=== PATIENT | female | born 1970 | race Caucasian/White ===

== ENCOUNTER 2018-06-27 13:02 | Outpatient (REF) | payer MEDICAID, SELFPAY ==
[2018-06-27 22:43] LABS: ALT 38 U/L (12-78); AST 20 U/L (15-37); Albumin 3.5 g/dL (3.4-5.0); Alkaline Phosphatase 85 U/L (46-116); Anion Gap 10.8 mmol/L (3-11); BUN 12 mg/dL (7-18); Bilirubin, Total 0.3 mg/dL (0.2-1.0); CO2 25.2 mmol/L (21.0-32.0); CREATININE 0.77 mg/dL (0.55-1.02); Calcium 8.9 mg/dL (8.5-10.1); Chloride 106 mmol/L (98-107); Creatine Kinase 91 U/L (26-192); Glucose 100 mg/dL (70-100); Magnesium 2.1 mg/dL (1.8-2.4); Potassium 4.3 mmol/L (3.5-5.1); Sodium 142 mmol/L (136-145); Total Protein 7.6 g/dL (6.4-8.2)
== END 2018-06-27 13:22 ==
LOC: NCHCN 13:02
PROVIDERS: PCP Physician Assistant Medical; Visit Provider Physician Assistant Medical
DX: M79.604 Pain in right leg (principal); M79.605 Pain in left leg
CPT/HCPCS: 80053; 82550; 83735

== ENCOUNTER 2019-01-18 18:25 | Outpatient (REF) | payer MEDICAID, SELFPAY ==
[2019-01-18 20:35] LABS: Hemoglobin A1C 7.2 % (4.5-6.2)
[2019-01-18 20:38] LABS: ALT 40 U/L (12-78); AST 18 U/L (15-37); Albumin 3.8 g/dL (3.4-5.0); Alkaline Phosphatase 87 U/L (46-116); BUN 15 mg/dL (7-18); Bilirubin, Total 0.2 mg/dL (0.2-1.0); CREATININE 0.97 mg/dL (0.55-1.02); Calcium 9.1 mg/dL (8.5-10.1); Chloride 103 mmol/L (98-107); Cholesterol 149 mg/dL (50-200); Glucose 136 mg/dL (70-100); HDL Cholesterol 42 mg/dL (40-60); LDL CHOLESTEROL 81 mg/dL (<100); Sodium 141 mmol/L (136-145); Total Protein 7.6 g/dL (6.4-8.2); Triglyceride 170 mg/dL (30-150)
== END 2019-01-18 18:45 ==
LOC: NCHCN 18:25
PROVIDERS: PCP Physician Assistant Medical; Visit Provider Physician Assistant Medical
DX: E11.9 Type 2 diabetes mellitus without complications (principal); I10 Essential (primary) hypertension
CPT/HCPCS: 80053; 80061; 83721; 83036

== ENCOUNTER 2019-02-17 04:28 | Outpatient (CLI) | payer MEDICAID, SELFPAY ==
--- NOTE | 2019-03-20 09:46 | ZIOP_ITS ---
DATE OF DICTATION: March 19, 2019 INDICATION: Palpitations. PRESCRIBING CLINICIAN: Kori Villalba ENROLLMENT: 02/17/2019 until 03/02/2019 FINDINGS: 1. Baseline sinus rhythm, 55-129 bpm, average 79 bpm. 2. Rare PAC, less than 1%, no SVT, no AF. 3. Rare PVC, less than 1%, no VT. 4. No bradycardia or pauses. 5. Six triggered events, all sinus rhythm, 75-93 bpm, two times with PVC's. 6. No symptoms recorded.
== END 2019-02-17 04:48 ==
PROVIDERS: PCP Physician Assistant Medical; Visit Provider Physician Assistant Medical
DX: R00.2 Palpitations (principal); I49.3 Ventricular premature depolarization; I49.1 Atrial premature depolarization
CPT/HCPCS: 0296T

== ENCOUNTER 2019-04-03 08:07 | Outpatient (CLI) | payer MEDICAID, SELFPAY | END 2019-04-03 08:27 | PROVIDERS: PCP Physician Assistant Medical; Visit Provider Internal Medicine Interventional Cardiology | DX: I25.10 Atherosclerotic heart disease of native coronary artery without angina pectoris (principal); I10 Essential (primary) hypertension; E78.5 Hyperlipidemia, unspecified; F17.200 Nicotine dependence, unspecified, uncomplicated | CPT/HCPCS: 93005; 93010 ==

== ENCOUNTER 2019-10-25 18:49 | Outpatient (REF) | payer MEDICAID, SELFPAY ==
--- NOTE | 2019-10-25 16:15 | PAPFT_PTH ---
PATIENT: Natalie Ha [facility] U#:[id number] AGE/SX: 49/F ROOM: RE10/25/[address]: Tra Morejon : 1970 BED: DIS: 10/25/2019 SPEC #: [id number] RECD: 10/26/19 13:00 STATUS: ELENA CALERO #: [id number] GARRETT: 10/25/19 16:[address]: Tra Morejon DEPT: [facility] Cytology RECD BY: Meeta Clements Tissues: 1 - CX/ENDOCX FOR PAP SMEARS Procedures: PAP THIN PREP/UVM Screening HPV DNA PROBE Comments: [id number]
== END 2019-10-25 19:09 ==
LOC: NCHCN 18:49
PROVIDERS: PCP Physician Assistant Medical; Visit Provider Physician Assistant Medical
DX: Z12.4 Encounter for screening for malignant neoplasm of cervix (principal); Z11.51 Encounter for screening for human papillomavirus (HPV); Z00.00 Encounter for general adult medical examination without abnormal findings
CPT/HCPCS: 88142; 87480; 87510; 87624; 87660

== ENCOUNTER 2020-01-19 09:28 | Outpatient (REF) | payer MEDICAID, SELFPAY ==
[2020-01-19 19:04] LABS: ALT 48 U/L (14-59); AST 23 U/L (15-37); Albumin 3.8 g/dL (3.4-5.0); Alkaline Phosphatase 70 U/L (46-116); BUN 14 mg/dL (7-18); Bilirubin, Total 0.3 mg/dL (0.2-1.0); CREATININE 0.77 mg/dL (0.55-1.02); Calcium 8.9 mg/dL (8.5-10.1); Calculated LDL 186 mg/dL (<100); Chloride 104 mmol/L (98-107); Cholesterol 254 mg/dL (<200); Glucose 130 mg/dL (74-106); HDL Cholesterol 45 mg/dL (40-60); Potassium 4.4 mmol/L (3.5-5.1); Sodium 139 mmol/L (136-145); Total Protein 7.8 g/dL (6.4-8.2); Triglyceride 117 mg/dL (<150)
[2020-01-19 19:21] LABS: Hemoglobin A1C 6.7 % (3.8-5.6)
== END 2020-01-19 09:48 ==
LOC: NCHCN 09:28
PROVIDERS: PCP Physician Assistant Medical; Visit Provider Physician Assistant Medical
DX: Z13.1 Encounter for screening for diabetes mellitus (principal); Z13.220 Encounter for screening for lipoid disorders; Z13.228 Encounter for screening for other metabolic disorders; Z00.00 Encounter for general adult medical examination without abnormal findings
CPT/HCPCS: 80053; 80061; 83036

== ENCOUNTER 2020-07-08 14:00 | Outpatient (REF) | payer MEDICAID, SELFPAY ==
[2020-07-08 20:53] LABS: Abs Immature Grans 0.06 10^3/uL (0.0-0.06); Absolute Basophil Count 0.05 10^3/uL (0.0-0.2); Absolute Eosinophil Count 0.27 10^3/uL (0.0-0.7); Absolute Neutrophil Count 6.82 10^3/uL (1.2-6.7); Basophils % 0.5; Eosinophils % 2.5; HCT 41.7 % (36.0-46.0); HGB 13.8 g/dL (11.2-15.7); Immature Grans % 0.6; Lymphocytes % 25.9; MCH 32.5 pg (27.0-33.0); MCHC 33.1 % (32.0-36.0); MCV 98.3 fL (80-95); MPV 11.2 fL (8.0-11.0); Monocytes % 7.4; Neutrophils % 63.1; Nucleated RBC 0 %; Platelet Count 235 10^3/uL (130-400); RBC 4.24 10^6/uL (3.93-5.22); RDW 13.1 % (11.7-14.6); RDW-SD 46.8 fL; WBC 10.81 10^3/uL (4.4-10.8)
[2020-07-08 21:13] LABS: Iron 81 ug/dL (50-170); Total Iron Binding Capacity 329 ug/dL (250-450); Transferrin Sat 25 % (15-50)
[2020-07-08 21:35] LABS: ALT 42 U/L (14-59); AST 19 U/L (15-37); Albumin 3.9 g/dL (3.4-5.0); Alkaline Phosphatase 76 U/L (46-116); Anion Gap 10.7 mmol/L (3-11); BUN 14 mg/dL (7-18); Bilirubin, Total 0.3 mg/dL (0.2-1.0); CO2 25.3 mmol/L (21.0-32.0); CREATININE 0.84 mg/dL (0.55-1.02); Calcium 9.2 mg/dL (8.5-10.1); Calculated LDL 51 mg/dL (<100); Chloride 101 mmol/L (98-107); Cholesterol 137 mg/dL (<200); Ferritin 231 ng/mL (8-252); Glucose 280 mg/dL (74-106); HDL Cholesterol 39 mg/dL (40-60); Potassium 4.1 mmol/L (3.5-5.1); Sodium 137 mmol/L (136-145); Total Protein 7.6 g/dL (6.4-8.2); Triglyceride 236 mg/dL (<150)
[2020-07-09 00:15] LABS: Hemoglobin A1C 9.6 % (<5.7)
== END 2020-07-08 14:20 ==
LOC: NCHCN 14:00
PROVIDERS: PCP Physician Assistant Medical; Visit Provider Physician Assistant Medical
DX: E11.9 Type 2 diabetes mellitus without complications (principal); I25.10 Atherosclerotic heart disease of native coronary artery without angina pectoris; G25.81 Restless legs syndrome
CPT/HCPCS: 80053; 80061; 82728; 83036; 83540; 83550; 85025

== ENCOUNTER 2021-09-24 14:16 | Outpatient (REF) | payer MEDICAID, SELFPAY ==
[2021-09-24 21:25] LABS: ALT 37 U/L (14-59); AST 20 U/L (15-37); Albumin 3.9 g/dL (3.4-5.0); Alkaline Phosphatase 75 U/L (46-116); Anion Gap 9.6 mmol/L (3-11); BUN 12 mg/dL (7-18); Bilirubin, Total 0.3 mg/dL (0.2-1.0); CO2 27.4 mmol/L (21.0-32.0); CREATININE 0.9 mg/dL (0.55-1.02); Calcium 9.3 mg/dL (8.5-10.1); Calculated LDL 78 mg/dL (<100); Chloride 102 mmol/L (98-107); Cholesterol 155 mg/dL (<200); Glucose 249 mg/dL (74-106); HDL Cholesterol 48 mg/dL (40-60); Potassium 4.6 mmol/L (3.5-5.1); Sodium 139 mmol/L (136-145); Total Protein 7.9 g/dL (6.4-8.2); Triglyceride 145 mg/dL (<150)
[2021-09-24 21:26] LABS: Hemoglobin A1C 8.6 % (<5.7)
== END 2021-09-24 14:17 | disposition home or self-care (01) ==
LOC: NCHCN 14:16
PROVIDERS: PCP Physician Assistant Medical; Visit Provider Physician Assistant Medical
DX: E11.9 Type 2 diabetes mellitus without complications (principal); Z13.220 Encounter for screening for lipoid disorders; Z00.00 Encounter for general adult medical examination without abnormal findings
CPT/HCPCS: 80053; 80061; 83036

== ENCOUNTER → 2022-08-19 02:18 | Outpatient (CLI) | payer MEDICAID, SELFPAY ==
--- NOTE | 2022-08-19 | DI.MAMMO_ITS ---
Exam(s) MAMMO SCREENING EXAM: MAMMO SCREENING CLINICAL HISTORY: SCREENING, Z00.00,PREVENTIVE HEALTH, Z00.00 TECHNIQUE: Bilateral full field digital CC and MLO mammographic images were obtained with 3D tomosyn thesis and utilizing computer aided detection (CAD). COMPARISON: Available for comparison. FINDINGS: Masses/Architectural Distortion: None seen. Microcalcifications: No suspicious pleomorphic-type are seen. Skin Thickening/Nipple Retraction: None. IMPRESSION: 1. No significant interval change with no specific features of malignancy noted. 2. Unless there is more urgent need, screening mammography is recommended, as per [employer] guidelines. BI-RADS Category 1 - Negative Breast Density - Category B - Scattered areas of fibroglandular density Breast density category C or D implies that the patient has dense breast tissue. Dense breast tissue is very common and is not abnormal but dense breast tissue can make it harder to find cancer on a ma mmogram. Also, dense breast tissue may increase their breast cancer risk. This information about the result of the mammogram report was provided to the patient to raise their awareness. Use this report when you speak with the patient about their risks for breast cancer, which includes their family hist ory. At that time, you may recommend for more screening tests (Ultrasound or MRI) as they might be us eful based on their risk. A negative radiographic report should not delay biopsy if a dominant or clinically suspicious mass is present. Up to ten percent of cancers are not identified on mammography. A negative report may reinforce clinical impression. Adenosis and dense breasts may obscure an underlying neoplasm. False positive reports average 6 to 10%. Patient will receive a letter notifying them of these results.
== END ==
PROVIDERS: PCP Physician Assistant Medical; Visit Provider Physician Assistant Medical
DX: Z12.31 Encounter for screening mammogram for malignant neoplasm of breast (principal)
CPT/HCPCS: 77063; 77067

== ENCOUNTER 2022-10-29 03:30 | Outpatient (CLI) | payer MEDICAID, SELFPAY ==
--- NOTE | 2022-10-29 | DI.RAD_ITS ---
Exam(s) XR SHOULDER LT COMPLETE 2+V EXAM: XR SHOULDER LT COMPLETE 2+V CLINICAL HISTORY: LT SHOULDER PAIN, M25.512. TECHNIQUE: 2D digital imaging was performed. COMPARISON: No exams were available for comparison FINDINGS: Five views: No evidence fracture nor dislocation nor diminution of the subacromial space. The AC joint appears unremarkable as does the clavicle and acromion. However, there is small calcifi c density just above the osseous glenoid and another subtle calcific density adjacent to the medial h umeral head. No osseous lesions. Bone density normal. IMPRESSION: Subtle findings as described above. If clinically indicated follow-up MRI can be performed. DATA REPOSITORY: RADIATION DOSE DELIVERED:
== END 2022-10-29 03:50 ==
LOC: DI 03:30
PROVIDERS: PCP Physician Assistant Medical; Visit Provider Physician Assistant Medical
DX: M25.512 Pain in left shoulder (principal); M25.812 Other specified joint disorders, left shoulder
CPT/HCPCS: 73030

== ENCOUNTER 2022-11-24 18:07 | Outpatient (REF) | payer MEDICAID, SELFPAY ==
[2022-11-24 19:27] LABS: ALT 34 U/L (14-59); AST 23 U/L (15-37); Albumin 4.1 g/dL (3.4-5.0); Alkaline Phosphatase 89 U/L (46-116); BUN 22 mg/dL (7-18); Bilirubin, Total 0.4 mg/dL (0.2-1.0); CREATININE 0.7 mg/dL (0.55-1.02); Calcium 9.9 mg/dL (8.5-10.1); Calculated LDL 72 mg/dL (<100); Chloride 103 mmol/L (98-107); Cholesterol 161 mg/dL (<200); Glucose 206 mg/dL (74-106); HDL Cholesterol 47 mg/dL (40-60); Hemoglobin A1C 8.5 % (<5.7); Sodium 138 mmol/L (136-145); Total Protein 8.4 g/dL (6.4-8.2); Triglyceride 214 mg/dL (<150)
== END 2022-11-24 18:08 | disposition home or self-care (01) ==
LOC: NCHCN 18:07
PROVIDERS: PCP Physician Assistant Medical; Visit Provider Physician Assistant Medical
DX: I10 Essential (primary) hypertension (principal); E11.9 Type 2 diabetes mellitus without complications; I25.10 Atherosclerotic heart disease of native coronary artery without angina pectoris
CPT/HCPCS: 80053; 80061; 83036

== ENCOUNTER 2023-09-29 17:09 | Outpatient (REF) | payer MEDICAID, SELFPAY ==
[2023-09-29 20:11] LABS: ALT 40 U/L (14-59); AST 21 U/L (15-37); Alkaline Phosphatase 83 U/L (46-116); Anion Gap 8.7 mmol/L (3-11); BUN 17 mg/dL (7-18); Bilirubin, Total 0.5 mg/dL (0.2-1.0); CO2 28.3 mmol/L (21.0-32.0); CREATININE 0.7 mg/dL (0.55-1.02); Chloride 105 mmol/L (98-107); Estimated GFR 103.35 (mL/min/1.73m2); Glucose 147 mg/dL (74-106); Potassium 3.9 mmol/L (3.5-5.1); Sodium 142 mmol/L (136-145); Total Protein 8.7 g/dL (6.4-8.2)
[2023-09-29 20:14] LABS: Hemoglobin A1C 7.4 % (<5.7)
[2023-09-29 20:34] LABS: Calculated LDL 153 mg/dL (<100); Cholesterol 253 mg/dL (<200); HDL Cholesterol 54 mg/dL (40-60); Triglyceride 232 mg/dL (<150)
== END 2023-09-29 17:10 | disposition home or self-care (01) ==
LOC: NCHCN 17:09
PROVIDERS: PCP Physician Assistant Medical; Visit Provider Physician Assistant Medical
DX: E11.9 Type 2 diabetes mellitus without complications (principal); I25.10 Atherosclerotic heart disease of native coronary artery without angina pectoris
CPT/HCPCS: 80053; 80061; 83036

== ENCOUNTER 2024-07-11 18:59 | Outpatient (REF) | payer MEDICAID, SELFPAY ==
[2024-07-11 19:47] LABS: ALT 28 U/L (14-59); AST 19 U/L (15-37); Albumin 3.4 g/dL (3.4-5.0); Alkaline Phosphatase 93 U/L (46-116); Anion Gap 5.7 mmol/L (3-11); BUN 15 mg/dL (7-18); Bilirubin, Total 0.29 mg/dL (0.2-1.0); CO2 29.3 mmol/L (21.0-32.0); CREATININE 0.9 mg/dL (0.55-1.02); Calcium 9.2 mg/dL (8.5-10.1); Calculated LDL 48 mg/dL (<100); Chloride 106 mmol/L (98-107); Cholesterol 116 mg/dL (<200); Estimated GFR 76.44 (mL/min/1.73m2); Glucose 253 mg/dL (74-106); HDL Cholesterol 44 mg/dL (40-60); Potassium 4.2 mmol/L (3.5-5.1); Sodium 141 mmol/L (136-145); Total Protein 7.6 g/dL (6.4-8.2); Triglyceride 124 mg/dL (<150)
[2024-07-12 18:35] LABS: Estradiol 14 pg/mL (See Note)
== END 2024-07-11 19:00 | disposition home or self-care (01) ==
LOC: NCHCN 18:59
PROVIDERS: PCP Physician Assistant Medical; Visit Provider Physician Assistant Medical
DX: I25.10 Atherosclerotic heart disease of native coronary artery without angina pectoris (principal); N91.2 Amenorrhea, unspecified
CPT/HCPCS: 80053; 80061; 82670

== ENCOUNTER 2024-07-31 01:47 | Outpatient (CLI) | payer MEDICAID, SELFPAY ==
--- NOTE | 2024-07-31 15:51 | DI.CTLCSR_ITS ---
Exam(s) CT CHEST LUNG CANCER SCREEN EXAM: CT CHEST LUNG CANCER SCREEN CLINICAL HISTORY: Nicotine dependence, F17.210, current smoker TECHNIQUE: Imaging Protocol: Axial computed tomography images with coronal and sagittal reformatted images were created and reviewed COMPARISON: CR CHEST 2 VIEWS PA,LAT from 09/20/2014 FINDINGS: Tracheobronchial tree: Patent where visualized. No bronchiectasis. Pulmonary parenchyma: No consolidation or dominant measurable mass. No architectural distortion. Lung Nodules: There is a 4 mm nodule in the periphery of the left lower lobe of the lung base. Mediastinum and Lola: No dominant adenopathy or fluid collection. The esophagus is unremarkable. Thyroid gland: Unremarkable. Lymph nodes: Unremarkable. Pleura: No effusion or pneumothorax. Heart: The heart is not dilated. Three vessel coronary artery calcification is present. No pericardi al effusion. Aorta: Thoracic aorta non-dilated.Atherosclerotic calcification is present. Upper abdomen: Unremarkable. Soft Tissues: Unremarkable. Bones: Within normal limits. IMPRESSION: 4 mm left lower lobe pulmonary nodule. Lung RADS Cat 3 - Probably Benign: Probably benign finding(s) - short term follow-up suggested; inclu de nodules with a low likelihood of becoming a clinically active cancer. Lung-RADS 1.0 CATEGORIES: Category 0 - Prior chest CT exam(s) being located for comparison. Category 1 - Annual screening in 12 months. No nodules or definitely benign nodules. Category 2 - Annual screening in 12 months. Benign appearance. Nodules with low likelihood of becomin g active cancer. Category 3 - 6-month follow-up. Probably benign. Short-term follow-up suggested. Nodules with low lik elihood of becoming active cancer. Category 4A - 3-month follow-up and CT/PET if >8 mm in size. Suspicious finding. Findings which requi re additional testing. Category 4B - Findings which require additional testing and tissue sampling. Suspicious finding. Category 4X - Category 3 or 4 nodules with additional features or imaging findings that increases the suspicion of malignancy. Modifier S- Potentially clinically significant finding. (Non lung cancer) RADIATION DOSE DELIVERED: 106.25mGy.cm Total DLP 106.25mGy.cmTotal DLP DATA REPOSITORY: All CT scans at this facility are submitted to the National Radiology Data Registry (NRDR) Dose Index Registry (DIR) with the [employer] (ACR). RADIATION OPTIMIZATION: All CT scans at this facility use at least one of these dose optimization te chniques: automated exposure control; mA and/or kV adjustment per patient size (includes targeted exa ms where dose is matched to clinical indication); or iterative reconstruction.
== END 2024-07-31 02:07 ==
LOC: DI 01:47
PROVIDERS: PCP Physician Assistant Medical; Visit Provider Physician Assistant Medical
DX: Z12.2 Encounter for screening for malignant neoplasm of respiratory organs (principal); F17.210 Nicotine dependence, cigarettes, uncomplicated; R91.1 Solitary pulmonary nodule
CPT/HCPCS: 71271

== ENCOUNTER 2025-03-06 01:42 | Outpatient (CLI) | payer MEDICAID, SELFPAY ==
--- NOTE | 2025-03-06 14:14 | DI.CT_ITS ---
Exam(s) CT CHEST WO EXAM: CT CHEST WO CLINICAL HISTORY: Abnl findings on DI of lung, f/u LDCT 07/31/24, R91.8,4 MM LLL NODULE TECHNIQUE: Imaging Protocol: Axial computed tomography images with coronal and sagittal reformatted images were created and reviewed. Computer aided detection (CAD) was utilized. CONTRAST MATERIAL: Noncontrast COMPARISON: CT CT CHEST LUNG CANCER SCREEN from 07/31/2024 FINDINGS: Pulmonary parenchyma: Stable 4 millimeter pleural based nodule at the left lung base. Additional 4 m illimeter nodule in the right middle lobe. This was present in retrospect on the prior exam however there is motion in this area. No consolidation. No dominant measurable mass. Mild emphysematous changes. Tracheobronchial tree: No bronchiectasis or mucous plugging. Mediastinum and Lola: Stable small mediastinal lymph nodes. Pleura: No effusion. No pneumothorax. Heart: The heart is not dilated. Coronary artery calcifications are seen. There is also an apparen t coronary artery stent versus dense calcification. Aorta: Thoracic aorta non-dilated. Mild atherosclerotic changes. Pulmonary arteries: Nondilated Upper abdomen: No acute findings. Enlarged fatty liver. Bones: Mild degenerative changes in the spine. Soft tissues: Unremarkable. IMPRESSION: Stable 4 millimeter nodule left lung base. 4 millimeter nodule also seen in the right middle lobe wh ich in retrospect was present on the prior exam but a partially obscured by motion. In high a risk patient, a low-dose chest CT is recommended in 1 year. RADIATION DOSE DELIVERED: Total DLP DATA REPOSITORY: All CT scans at this facility are submitted to the National Radiology Data Registry (NRDR) Dose Index Registry (DIR) with the [employer] (ACR). RADIATION OPTIMIZATION: All CT scans at this facility use at least one of these dose optimization te chniques: automated exposure control; mA and/or kV adjustment per patient size (includes targeted exa ms where dose is matched to clinical indication); or iterative reconstruction.
== END 2025-03-06 02:02 ==
LOC: DI 01:42
PROVIDERS: PCP Physician Assistant Medical; Visit Provider Physician Assistant Medical
DX: R91.8 Other nonspecific abnormal finding of lung field (principal)
CPT/HCPCS: 71250

== ENCOUNTER 2025-04-11 20:58 | Outpatient (REF) | payer MEDICAID, SELFPAY ==
[2025-04-11 20:25] LABS: Abs Immature Grans 0.03 10^3/uL (0.0-0.06); HCT 46.6 % (36.0-46.0); HGB 15.6 g/dL (11.2-15.7); Immature Grans % 0.3 %; MCH 31.5 pg (27.0-33.0); MCHC 33.5 % (32.0-36.0); MCV 94 fL (80-95); MPV 10.8 fL (8.0-11.0); Platelet Count 203 10^3/uL (130-400); RBC 4.95 10^6/uL (3.93-5.22); RDW 11.9 % (11.7-14.6); RDW-SD 40.9 fL; WBC 10.11 10^3/uL (4.4-10.8)
[2025-04-11 20:42] LABS: Hemoglobin A1C 10.1 % (<5.7)
[2025-04-11 20:43] LABS: ALT 32 U/L (14-59); AST 25 U/L (15-37); Albumin 3.7 g/dL (3.4-5.0); Alkaline Phosphatase 104 U/L (46-116); Anion Gap 11.8 mmol/L (3-11); BUN 18 mg/dL (7-18); Bilirubin, Total 0.3 mg/dL (0.2-1.0); CO2 25.2 mmol/L (21.0-32.0); Calcium 9.4 mg/dL (8.5-10.1); Chloride 103 mmol/L (98-107); Estimated GFR 102.71 (mL/min/1.73m2); Glucose 218 mg/dL (74-106); Potassium 4.2 mmol/L (3.5-5.1); Sodium 140 mmol/L (136-145); Total Protein 8.2 g/dL (6.4-8.2)
== END 2025-04-11 20:59 | disposition home or self-care (01) ==
LOC: NCHCN 20:58
PROVIDERS: PCP Physician Assistant Medical; Visit Provider Physician Assistant Medical
DX: E11.9 Type 2 diabetes mellitus without complications (principal); K76.0 Fatty (change of) liver, not elsewhere classified
CPT/HCPCS: 80053; 83036; 85025

== ENCOUNTER 2025-06-02 12:53 | Emergency (ER) | payer MEDICAID, SELFPAY ==
[2025-06-02] VITALS (7 sets, daily range): BP systolic 102–211; BP diastolic 64–85; PULSE 54–60; RESP 12–18; TEMP 36.8; O2SAT 93–98
--- NOTE | 2025-06-02 12:45 | RT.EKG_ITS ---
APPROVED REPORT Exam: Resting ECG Reason for Exam: Palpitations Patient Location: E HR:58 bpm ECG Measurements Heart Rate 58 AXIS MS 223 P 70 QRSd 89 QRS 69 QT 425 T 110 QTc 418 Conclusion Sinus bradycardia...rate< 60 Prolonged MS interval...MS >210, V-rate 50- 90 Anterior infarct, old...Q >40mS, abnormal ST-T, V2-V5 Abnormal T, consider ischemia, lateral leads...T <-0.20mV, I aVL V5 V6
--- NOTE | 2025-06-02 13:27 | W.ED.GENAD ---
Discharge Plan Disposition Patient Disposition: Against Medical Advice Condition: Serious Discharge Details Clinical Impression: Chest pain, Elevated troponin Primary Care Provider: Tra Morejon ED Provider: Silvestre Walker Home Meds and New Rx's Prescriptions: Continued multivitamin tablet 1 tab PO DAILY isosorbide mononitrate 30 mg tablet extended release 24 hr 30 mg PO DAILY triamcinolone acetonide 0.1 % cream 1 applic TP BID budesonide-formoterol [Symbicort] 160-4.5 mcg/actuation HFA aerosol inhaler 2 puff IH BID insulin glargine [Lantus Solostar U-100 Insulin] 100 unit/mL (3 mL) insulin pen 70 unit SC DAILY Patient Comments: 04/06/24- per pt record from PCP dose is 70 units subq once a day duloxetine [Cymbalta] 30 mg capsule,delayed release(DR/EC) 60 mg PO DAILY rosuvastatin [Crestor] 20 mg tablet 40 mg PO DAILY lisinopril 10 mg tablet 10 mg PO DAILY magnesium chloride 64 mg tablet,delayed release (DR/EC) 64 mg PO DAILY coenzyme Q10 [Co Q-10] 10 mg capsule 10 mg PO DAILY melatonin-lemon balm leaf extr 10-1 mg tablet 1 tab PO HS PRN hydroxyzine HCl 25 mg tablet 25 mg PO TID PRN Patient Comments: 04/06/24- per pt record from PCP pt may take 1-2 tablets by mouth three times a day as needed empagliflozin 25 mg tablet 25 mg PO DAILY acetylcysteine 600 mg capsule 1,200 mg PO BID Patient Comments: 04/06/24- per pt record from PCP pt to take two capsules by mouth in the morning and two capsules in the afternoon as needed for mood cholecalciferol (vitamin D3) 25 mcg (1,000 unit) tablet 2,000 unit PO DAILY Patient Comments: 04/06/24- per pt record from PCP trazodone 50 mg tablet 50 mg PO QHS PRN Rx Instructions: 04/06/24- per record from PCP, pt to take one 50 mg tablet by mouth every evening ascorbic acid (vitamin C) 1,000 mg tablet 1 g PO DAILY Rx Instructions: 04/06/24- per pt record from PCP, pt to take 1,000 mg po daily albuterol sulfate [ProAir HFA] 8.5 GM HFA aerosol inhaler 2 puff Inhalation QID PRN atenolol 25 mg tablet 25 mg PO DAILY aspirin [Aspir-81] 81 MG tablet,delayed release (DR/EC) 81 mg PO DAILY nitroglycerin 0.4 MG tablet, sublingual 0.4 mg Sublingual PRN insulin aspart U-100 100 unit/mL (3 mL) insulin pen SUBCUT Patient Comments: INJECT PER SLIDING SCALE +MAX 80 UNITS PER DAY+ Discharge Instructions Additional Instructions: Your cardiac biomarkers called troponins were mildly elevated. Your CAT scan did not show any concerning findings at this time. Follow-up with either your primary care provider or satellite tv technician as soon as possible. If you feel more ill, have severe worsening pain or decide you want to be hospitalized return to the emergency department for reevaluation. HPI General Mode of arrival: ambulatory. Date/Time Provider Initiated Documentation: 06/02/25 12:55. Limitations to Documentation: no limitations. Information obtained by: patient. History of Present Illness 54 year old F presents to the emergency department with the chief complaint of fatigue, chest discomfort, described as moderate, Patient started experiencing this day(s) (1) and it has been constant. No relieving factors improve symptom(s), No exacerbating factors reported . Patient notes denies cough, fever/chills and shortness of breath. Patient did receive the following treatments prior to arrival, none Related Data Home Medications ?Medication ?Instructions ?Recorded ?Confirmed albuterol sulfate 90 mcg/actuation 2 puff inhalation QID PRN 04/06/14 06/02/25 aerosol inhaler (ProAir HFA) aspirin 81 mg tablet,delayed 81 mg PO DAILY 05/24/14 06/02/25 release (Aspir-) nitroglycerin 0.4 mg sublingual 0.4 mg sublingual PRN 05/24/14 06/02/25 tablet budesonide-formoterol HFA 160 2 puff inhalation BID 08/08/18 06/02/25 mcg-4.5 mcg/actuation aerosol inhaler (Symbicort) insulin glargine 100 unit/mL (3 70 unit subcut DAILY 08/08/18 06/02/25 mL) subcutaneous pen (Lantus Solostar U-100 Insulin) isosorbide mononitrate 30 mg 30 mg PO DAILY 08/08/18 06/02/25 tablet,extended release 24 hr multivitamin 1 tab PO DAILY 08/08/18 06/02/25 triamcinolone acetonide 0.1 % 1 applic topical BID 08/08/18 06/02/25 topical cream duloxetine 30 mg capsule,delayed 60 mg PO DAILY 04/03/19 06/02/25 release (Cymbalta) atenolol 25 mg tablet 25 mg PO DAILY 03/05/20 06/02/25 rosuvastatin 20 mg tablet (Crestor) 40 mg PO DAILY 03/05/20 06/02/25 coenzyme Q10 10 mg capsule (Co 10 mg PO DAILY 11/10/22 06/02/25 Q-10) empagliflozin 25 mg tablet 25 mg PO DAILY 11/10/22 06/02/25 hydroxyzine HCl 25 mg tablet 25 mg PO TID PRN 11/10/22 06/02/25 magnesium chloride 64 mg 64 mg PO DAILY 11/10/22 06/02/25 (magnesium chloride) tablet,delayed release melatonin 10 mg-lemon balm leaf 1 tab PO HS PRN 11/10/22 06/02/25 extract 1 mg tablet acetylcysteine 600 mg capsule 1,200 mg PO BID 04/06/24 06/02/25 ascorbic acid (vitamin C) 1,000 mg 1 g PO DAILY 04/06/24 06/02/25 tablet cholecalciferol (vitamin D3) 25 2,000 unit PO DAILY 04/06/24 06/02/25 mcg (1,000 unit) tablet trazodone 50 mg tablet 50 mg PO QHS PRN 04/06/24 06/02/25 lisinopril 10 mg tablet 10 mg PO DAILY 06/27/24 06/02/25 insulin aspart U-100 100 unit/mL subcut 06/02/25 (3 mL) subcutaneous pen Allergies Allergy/AdvReac Type Severity Reaction Status Date / Time No Known Allergies Allergy Unverified 06/02/25 13:09 General Stated Complaint: Chest Pain MUNIR: 3 Review of Systems All systems reviewed & are unremarkable except as noted in HPI and below Constitutional Constitutional: Denies chills, Reports fatigue and Denies fever(s) Cardiovascular Cardiovascular: Reports chest pain and Denies dyspnea Respiratory Respiratory: Denies cough and Denies dyspnea Gastrointestinal Gastrointestinal: Denies abdominal pain, Denies nausea and Denies vomiting Endocrine Endocrine: Reports fatigue Exam Const General: no acute distress Orientation: alert [facility] Head: normal to inspection Ears: external ears normal General nose exam: external nose normal Mouth: moist mucous membranes Eyes General: appearance normal, both eyes and all related structures Neck Neck: normal visual inspection Resp Effort & Inspection: normal respiratory effort and able to speak in complete sentences Auscultation: clear to auscultation bilaterally Cardio Jugular venous pressure: no JVD Rate: regular rate Skin General skin exam: no rashes or lesions noted Neuro General: patient alert and patient oriented x3 Extrem General: normal to inspection Psych Mental Status: mental status grossly normal Course Vital Signs Vital signs: Vital Signs Temperature 36.8 C 06/02/25 12:56 Pulse 60 06/02/25 12:56 Respiratory Rate 18 06/02/25 12:56 Blood Pressure 102/64 06/02/25 12:56 Pulse Oximetry 93 06/02/25 12:56 Temperature 36.8 C 06/02/25 12:56 Pulse 60 06/02/25 12:56 Respiratory Rate 18 06/02/25 12:56 Blood Pressure 102/64 06/02/25 12:56 Pulse Oximetry 93 06/02/25 12:56 Oxygen Delivery Method Room Air 06/02/25 12:56 Oxygen Flow Rate 0 06/02/25 12:56 Pain Level 0 06/02/25 12:56 Medical Decision Making 54-year-old female with a history of coronary artery disease who had a stent approximately 10 years ago per patient, hypertension, fibromyalgia, who comes in with 1 day of fatigue and intermittent chest discomfort. Denies any vomiting, diaphoresis, radiation of pain. She says she will intermittently have a mild chest pressure. She says she has been working a lot of hours and has been under a lot of stress at work. Denies any fevers, chills, alcohol or drug use. She does smoke. She is oriented on arrival in no distress. She has clear lung sounds, no JVD, no leg swelling or calf tenderness. Suspect her symptoms could related to anxiety but given her history we will check CBC, CMP and troponins D-dimer screen for PE. She has no tearing back pain has equal peripheral pulses so I doubt dissection. Patient's troponin 157, she is denying any current chest pain or chest pressure. D-dimer is over 900, will add a CTA. CTA negative, delta troponin 157. She is asymptomatic. I discussed results with her and advised my plan was to consult cardiology at [facility] to discuss potentially transfer or be admitted here for observation and potentially having a stress test. She has decision-making capacity and is clinically sober and does not want to stay or be transferred. She is choosing to leave AGAINST MEDICAL ADVICE. She understands she can return anytime if she changes her mind. She is can follow-up with her PCP or satellite tv technician as soon as possible. She also return if she has any worsening symptoms. Lab Data Lab results reviewed: Yes I reviewed the patient's lab results. ECG Data Attestation: I personally reviewed and interpreted this ECG (s) as follows: Prior ECG tracings: available for review Interpretation: sinus bradycardia rate of 58 no stemi PFSH All Active Problems (Updated 06/02/25 @ 15:47 by Silvestre Walker MD) Elevated troponin (Acute) Chest pain (Acute) Bilateral carpal tunnel syndrome (Acute) Obesity, morbid, BMI 50 or higher (Acute) Periodic heart flutter (Acute) Screening for colon cancer (Acute) Fibromyalgia (Chronic) Restless leg syndrome (Chronic) Diabetic peripheral neuropathy (Chronic) Obesity (Chronic) Sleep apnea (Acute) Diabetes mellitus (Chronic) Tobacco abuse (Acute) CAD (coronary artery disease) (Chronic) Hypertension (Chronic) Medical History Pain, joint, shoulder region, left HPV in female Atherosclerosis Plantar fascial fibromatosis Hernia of abdominal wall Cardiac arrhythmia Essential hypertension Polyneuropathy Stress Depression determined by examination Family history of alcoholism Ventral hernia Depression Surgical History S/P coronary artery stent placement S/P section Family History Mother Family hx of hypertension Family history of hypercholesterolemia Family hx-stroke Paternal Grandmother Family hx of hypertension Father Family hx of alcoholism Family history of psychotic illness Maternal Grandmother Family hx-stroke Social History Smoking/Tobacco Use Status: Current every day Quit status: considering quitting Counseling given: patient declined Smoking risk assessment performed?: Yes Drug use: Never Household members: children Number of Children: 3 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 Do you feel safe in your relationship?: Yes
[2025-06-02 13:30] LABS: Abs Immature Grans 0.03 10^3/uL (0.0-0.06); BE (Venous) 3 mmol/L (-2-3); HCO3 (Venous) 28 mmol/L (23-28); HCT 42.8 % (36.0-46.0); HGB 14.3 g/dL (11.2-15.7); Immature Grans % 0.3 %; MCH 31.1 pg (27.0-33.0); MCHC 33.4 % (32.0-36.0); MCV 93 fL (80-95); MPV 10.6 fL (8.0-11.0); O2 Sat (Venous) 82 %; Platelet Count 199 10^3/uL (130-400); RBC 4.60 10^6/uL (3.93-5.22); RDW 12.5 % (11.7-14.6); RDW-SD 42.7 fL; TCO2 (Venous) 25 mmol/L (24-29); WBC 9.25 10^3/uL (4.4-10.8); pCO2 (Venous) 45 mmHg (41-51); pO2 (Venous) 42 mmHg
[2025-06-02 14:01] LABS: ALT 32 U/L (14-59); AST 17 U/L (15-37); Albumin 3.7 g/dL (3.4-5.0); Alkaline Phosphatase 96 U/L (46-116); Anion Gap 8.0 mmol/L (3-11); BUN 9 mg/dL (7-18); Bilirubin, Total 0.3 mg/dL (0.2-1.0); CO2 29.0 mmol/L (21.0-32.0); Calcium 9.5 mg/dL (8.5-10.1); Chloride 105 mmol/L (98-107); D-Dimer 903 ng/mlFEU (<500); Estimated GFR 102.71 (mL/min/1.73m2); Glucose 185 mg/dL (74-106); Magnesium 2.1 mg/dL (1.8-2.4); Potassium 4.0 mmol/L (3.5-5.1); Sodium 142 mmol/L (136-145); TSH (W/Ref FT4) 2.02 uIU/mL (0.36-3.74); Total Protein 8.1 g/dL (6.4-8.2)
[2025-06-02 14:04] LABS: INR 1.0 (0.9-1.1); PTT Activated 25.2 sec (20.6-30.2); Prothrombin Time 10.0 sec (9.1-11.1); Troponin I 157 ng/L (<or=51)
--- NOTE | 2025-06-02 14:05 | DI.CT_ITS ---
Exam(s) CT CHEST PE CTA EXAM: CT CHEST PE CTA CLINICAL HISTORY: chest pain, elevated d dimer. TECHNIQUE: Imaging Protocol: CT angiography of the chest was performed using pulmonary embolus protocol. Multi planar reconstructions were performed. CONTRAST MATERIAL: Intravenous: Omnipaque 350 Contrast volume: 100 cc COMPARISON: CT CT CHEST WO from 03/06/2025 FINDINGS: CHEST: PULMONARY ARTERIES: There are no intraluminal filling defects to suggest acute pulmonary emboli. LUNGS: There are no infiltrates nor evidence of pulmonary infarction.. There are no pleural effusions. No ominous pulmonary nodules MEDIASTINUM: There is no hilar nor mediastinal adenopathy. Visualized thyroid unremarkable. CARDIAC: Heart size is upper normal. There is no pericardial effusion.Caliber of the thoracic aorta is within normal limits. No evidence of dissection. There is no significant shift of the interventricular septum. PARTIALLY VISUALIZED UPPERMOST ABDOMEN: No obvious findings OSSEOUS: No significant osseous lesions.. IMPRESSION: 1. No evidence of acute pulmonary emboli. No evidence of pulmonary infarction.No infiltrates nor pleural effusions 2. No evidence of aortic dissection nor pericardial effusion. Called by myself to ER physician 06/02/2025 at 3:32 p.m. RADIATION DOSE DELIVERED: 147.36mGy.cm Total DLP DATA REPOSITORY: All CT scans at this facility are submitted to the National Radiology Data Registry (NRDR) Dose Index Registry (DIR) with the [employer] (ACR). RADIATION OPTIMIZATION: All CT scans at this facility use at least one of these dose optimization techniques: automated exposure control; mA and/or kV adjustment per patient size (includes targeted exams where dose is matched to clinical indication); or iterative reconstruction.
[2025-06-02 14:57] LABS: Troponin I 157 ng/L (<or=51)
[2025-06-02] MEDS: Omnipaque 350 MG/ML 100 ML BTL IJ (14:59)
[2025-06-02] MEDS: Normal Saline - Diluent 50 ML VIAL IJ (15:01)
[2025-06-02] MEDS: Normal Saline Flush 10 ML SYR IVP (15:01)
== END 2025-06-02 15:54 | disposition left against medical advice (07) ==
PROVIDERS: Emergency Provider Emergency Medicine; PCP Physician Assistant Medical
DX: R07.9 Chest pain, unspecified (principal); R79.89 Other specified abnormal findings of blood chemistry
CPT/HCPCS: 99285; 99284; 36415; 71275; 80053; 82805; 93005; 83735; 84443; 84484; 85025; 85379; 85610; 85730; 93010; J3490

== ENCOUNTER 2025-08-22 18:09 | Outpatient (REF) | payer SELFPAY ==
[2025-08-22 20:55] LABS: HCT 44.7 % (36.0-46.0); HGB 15.2 g/dL (11.2-15.7); MCH 31.5 pg (27.0-33.0); MCHC 34.0 % (32.0-36.0); MCV 93 fL (80-95); MPV 11.1 fL (8.0-11.0); Platelet Count 232 10^3/uL (130-400); RBC 4.83 10^6/uL (3.93-5.22); RDW 12.5 % (11.7-14.6); RDW-SD 43.0 fL; WBC 10.83 10^3/uL (4.4-10.8)
[2025-08-22 21:12] LABS: Lipase 361 U/L (<53)
[2025-08-22 21:18] LABS: ALT 27 U/L (10-49); AST 27 U/L (<34); Albumin 4.5 g/dL (3.4-5.0); Alkaline Phosphatase 97 U/L (46-116); Anion Gap 8 mmol/L (3-11); BUN 15 mg/dL (9-23); Bilirubin, Total 0.30 mg/dL (0.2-1.2); CO2 26.0 mmol/L (20.0-31.0); Calcium 9.7 mg/dL (8.3-10.6); Chloride 106 mmol/L (98-107); Glucose 305 mg/dL (74-106); Potassium 4.3 mmol/L (3.5-5.1); Sodium 140 mmol/L (136-145); Total Protein 8.0 g/dL (5.7-8.2)
== END 2025-08-22 18:10 | disposition home or self-care (01) ==
LOC: NCHCN 18:09
PROVIDERS: PCP Physician Assistant Medical; Visit Provider Physician Assistant Medical
DX: R10.13 Epigastric pain (principal)
CPT/HCPCS: 80053; 83690; 85027

== ENCOUNTER → 2025-09-19 00:19 | Outpatient (CLI) | payer OTHER, SELFPAY ==
--- NOTE | 2025-09-19 | DI.CT_ITS ---
Exam(s) CT ABDOMEN PELVIS W EXAM: CT ABDOMEN PELVIS W CLINICAL HISTORY: epigastric pain, R10.13. TECHNIQUE: Imaging Protocol: Axial computed tomography images with coronal and sagittal reformatted images were created and reviewed CONTRAST MATERIAL: Intravenous: Omnipaque 350 Contrast volume:100 ml Oral: yes COMPARISON: No exams were available for comparison FINDINGS: ABDOMEN and PELVIS: Lung Bases: No acute findings. Liver: Normal density. No suspicious mass. Gallbladder and biliary tract: No radiodense calculus. No wall thickening or pericholecystic fluid. No biliary dilation. Pancreas: Inflammation is noted around the body of the pancreas consistent with pancreatitis. There is no evidence pseudocyst formation or hemorrhage. Normal density. No abnormal calcifications. No evidence of mass. Spleen: Normal. Kidneys: Normal size, contour and axis. No radiodense stones. No obstructive uropathy. No suspicious masses seen. Adrenal glands: No masses seen. Vasculature: Abdominal aorta non-dilated. There is atherosclerotic calcification in the lower aorta and iliac arteries. Soft tissues: Unremarkable. Bladder: No gross wall thickening. No calculi.No focal mass. Bowel: No obstruction. No bowel wall thickening. Appendix normal. Peritoneal cavity: No ascites. No focal collection. No mesenteric inflammatory response. No free air. Bones: There are degenerative changes in the lower lumbar spine. Reproductive organs: Unremarkable. Lymph nodes: No pathologically enlarged lymph nodes. IMPRESSION:: Findings consistent with pancreatitis. There there are no visible gallstones or biliary dilatation. The report was faxed to the provider's office. RADIATION DOSE DELIVERED: Total DLP DATA REPOSITORY: All CT scans at this facility are submitted to the National Radiology Data Registry (NRDR) Dose Index Registry (DIR) with the [employer] (ACR). RADIATION OPTIMIZATION: All CT scans at this facility use at least one of these dose optimization techniques: automated exposure control; mA and/or kV adjustment per patient size (includes targeted exams where dose is matched to clinical indication); or iterative reconstruction.
[2025-09-19] MEDS: Barium Sulfate 2% W/V-Creamy Vanilla Smoothie 450 ML BTL PO (12:04)
[2025-09-19] MEDS: Barium Sulfate 2% W/V-Berry Smoothie 450 ML BTL PO (12:04)
[2025-09-19] MEDS: Normal Saline - Diluent 50 ML VIAL IJ (14:08)
[2025-09-19] MEDS: Normal Saline Flush 10 ML SYR IVP (14:08)
[2025-09-19] MEDS: Omnipaque 350 MG/ML 100 ML BTL IJ (14:09)
== END ==
LOC: DI 00:19
PROVIDERS: PCP Physician Assistant Medical; Visit Provider Physician Assistant Medical
DX: K85.90 Acute pancreatitis without necrosis or infection, unspecified (principal)
CPT/HCPCS: 74177; J3490

== ENCOUNTER 2025-10-10 16:41 | Outpatient (REF) | payer OTHER, SELFPAY ==
[2025-10-10 20:31] LABS: Lipase 306 U/L (<53)
[2025-10-12 19:58] LABS: Hepatitis C Ab w Rflx HCV PCR Negative (Negative)
== END 2025-10-10 16:42 | disposition home or self-care (01) ==
LOC: NCHCN 16:41
PROVIDERS: PCP Physician Assistant Medical; Visit Provider Physician Assistant Medical
DX: K85.90 Acute pancreatitis without necrosis or infection, unspecified (principal); K76.0 Fatty (change of) liver, not elsewhere classified
CPT/HCPCS: 83690; 86803